=== PATIENT | female | born 1995 | race Caucasian/White ===

== ENCOUNTER 2025-05-08 08:49 | Emergency (ER) | payer OTHER ==
[~2025-05-08] VITALS: Ht 157.5 cm; Wt 69.5 kg
[2025-05-08 09:29] LABS: MEAN PLATELET VOLUME 8.2 FL (7.4-10.4); RED CELL DISTRIBUTION WIDTH 16.4 % (11.5-14.5)
[2025-05-08 09:44] LABS: CREATININE 0.87 MG/DL (0.40-0.90); TOTAL CARBON DIOXIDE 25.4 MMOL/L (24-32); eCRCL 76 ML/MIN; eGFR 78 ML/MIN
--- NOTE | 2025-05-08 10:44 | Physician Documentation ---
History of Present Illness ~ Chief Complaint: Abdominal Pain Stated Complaint: ABD PAIN Time Seen by MD: 10:42 Primary Medical Doctor: LUPE CRAWLEY 29 Year old female with a history of PCOS presents today with the acute onset burning umbilical pain which radiates to her right pelvic region. Denies any vaginal bleeding states she does have irregular menstrual cycles. denies any fevers or nausea vomiting. Day of Onset: May 08, 2025 Medication Reconciliation Allergies: Coded Allergies: No Known Allergies (Unverified , 05/08/25) Past Medical History Past Medical History: No Pertinent History Past Surgical History: no surgical history Alcohol Use: None Drug Use: none Lives with: Father Lives In: Home Occupation: student Review of Systems All Other Systems at this time: Reviewed and Negative ROS As stated above in the HPI, otherwise all systems are reviewed and negative. Physical Exam Vital Signs: Temperature: 97.8, Source: Temporal, Heart Rate: 90, Respiratory Rate: 18, BP: 153/94, Pulse Oximetry: 100, Weight: 69.500 Physical Exam General: Alert, no apparent distress. Cardiovascular: Regular rate and rhythm, no murmurs. Gastrointestinal: Soft, nontender, nondistended. Bowels sounds present. tender right pelvic region Neurologic: Oriented x4. Psychiatric: Normal mood and affect. Skin: Normal color, warm and dry. No edema, no ecchymosis. Progress Results/Orders Results/Orders Orders - ROSALIO NESS TRACK LEADER Ultrasound Pelvis W/Orwo Dplx (05/08/25 09:58) Completed Orders - ROSALIO NESS TRACK LEADER Ketorolac Trometh 30mg/Ml Vial (Toradol (05/08/25 10:00) Ultrasound Pelvis W/Orwo Dplx (05/08/25 09:58) Hcg Serum Qt (05/08/25 12:08) Medications Received in ER Medications (Trade) Dose Ordered Sig/Amadou Route PRN Reason Start Time Stop Time Status Last Admin Dose Admin (Toradol inj. 30mg/ml) 30 mg ONCE ONCE IM 05/08/25 10:00 05/08/25 10:01 DC 05/08/25 10:54 30 MG Vital Signs 05/08/25 05/08/25 05/08/25 08:54 10:54 11:43 Temp 97.8 Pulse 90 Resp 18 16 B/P (MAP) 153/94 Pulse Ox 100 Laboratory Tests Test 05/08/25 09:14 05/08/25 11:16 White Blood Count 8.4 Red Blood Count 4.66 Hemoglobin 12.9 Hematocrit 39.0 Mean Corpuscular Volume 83.5 Mean Corpuscular Hemoglobin 27.6 Mean Corpuscular Hemoglobin Concent 33.0 Red Cell Distribution Width 16.4 H Platelet Count 298 Mean Platelet Volume 8.2 Neutrophils (%) (Auto) 73.3 Lymphocytes (%) (Auto) 20.3 L Monocytes (%) (Auto) 4.9 Eosinophils (%) (Auto) 1.2 Basophils (%) (Auto) 0.3 Neutrophils # (Auto) 6.2 Lymphocytes # (Auto) 1.7 Monocytes # (Auto) 0.4 Eosinophils # (Auto) 0.1 Basophils # (Auto) 0.0 CBC Comment Sodium Level 138 Potassium Level 3.5 Chloride Level 106 Carbon Dioxide Level 25.4 Anion Gap 7 L Blood Urea Nitrogen 6 L Creatinine 0.87 Estimated GFR/1.73 m2 78 BUN/Creatinine Ratio 6.9 L Glucose Level 110 H Calcium Level 8.7 Total Bilirubin 0.5 Aspartate Amino Transf (AST/SGOT) 24 Alanine Aminotransferase (ALT/SGPT) 34 Alkaline Phosphatase 77 Total Protein 8.0 Albumin 3.9 Globulin 4.1 Albumin/Globulin Ratio 1.0 L Amylase Level 97 Lipase 24 HCG Beta Subunit 33 Chemistry Comments Urine Specimen Description Non-specified Urine Color Yellow Urine Clarity Slightly cloudy Urine pH 6.5 Urine Specific [place] 1.020 Urine Protein Negative Urine Glucose (UA) Negative Urine Ketones Trace H Urine Occult Blood Negative Urine Nitrite Negative Urine Bilirubin Negative Urine Urobilinogen 0.2 Urine Leukocyte Esterase Negative Urine RBC 0-2 Urine WBC 0-4 Urine Squamous Epithelial Cells Many Urine Transitional Epithelial Cells Few Urine Bacteria 1+ Urine Culture Indicated Not ind Volume Urine Centrifuged 10 ml Urine HCG, Qualitative Positive Urine Comment Medical Decision Making Findings This patient's laboratory values showed no signs of infection urinalysis was clean however her urinalysis indicated a positive HCG. This was confirmed via hCG quantitative which indicated that patient is for one week. This could be the attributing cause of her right pelvic pain. However she was evaluated via ultrasound no evidence of torsion ovarian cysts or any other gross abnormalities Urinary Diff Dx:Considerations: Include: AAA, , Aortic dissection, Appendicitis, Bowel obstruction, Cholelithiasis, Choleangitis, DJD, Ectopic , Hepatitis, HNP, Impaction, Intrauterine , Musculoskeletal pain, Ovarian torsion, Pancreatitis, PID, Post-Op complication, Pyelonephritis, Renal failure, Strain, Urinary Obstruction, Urolithiasis, Urinary retention, UTI, Vaginitis, Other Genital Diff Dx:Considerations: Include: -Complete, - Incomplete, -Inevitable, Ablortion-Missed, -Threatened, Abruptio placentae, Bartholin abscess, Bartholin cyst, Blood loss anemia, Constipation, Cervicitis, Dsymenorrhea, Ectopic , Foreign body, Hormonal, Hidradenitis suppurativa, Intrauterine , Menorrhagia, Menometrorrhagia, Menstrual bleeding, Myomatous uterus, Perianal abscess, Physiologic discharge, Pinworms, PID, Placenta previa, , Precipitous Hct, Trauma, UTI, Vaginitis(osis)-Atrophic, Vaginitis, Vaginitis(osis)-Bacterial, Vaginitis(osis)- Candidal, Vaginitis(osis)-Contact, Vaginitis(osis)-Herpes, Vaginitis(osis)- Trich., Other Departure Disposition: HOME / SELF CARE / HOMELESS Impression: Primary Impression: Abdominal pain Additional Impression: Condition: Stable Discharge Instructions: ABCs of Referrals: NO PRIMARY CARE PROVIDER (PCP) Signature Scribe Signature: r Attestation: Scribed for Rosalio Ness Chain Saw Operator by Rosalio Yun NP . 05/08/25 12:59 ROSALIO NESS NP May 08, 2025 10:44
[2025-05-08] MEDS: ketorolac trometh 30MG/ML vial 30 MG/ML VIAL IM ONE (10:54)
[2025-05-08 11:35] LABS: LEUKOCYTE ESTERASE ,URINE NEGATIVE (Neg); NITRITES, URINE NEGATIVE (Neg); OCCULT BLOOD,URINE NEGATIVE (Neg)
[2025-05-08 11:37] LABS: URINE HCG POSITIVE (NEG)
[2025-05-08 11:43] LABS: UA COLLECTION TYPE NON-SPECIFIED
[2025-05-08 11:44] LABS: SQUAMOUS EPITHELIAL CELL,UR MANY /LPF (FEW)
--- NOTE | 2025-05-08 11:51 | RADIOLOGY REPORT ---
INDICATION: pelvic pain TECHNIQUE: Multiple real-time grayscale transabdominal sonographic images along with color and duplex Doppler of the uterus and ovaries were obtained. COMPARISON: None FINDINGS: The uterus measures 8.2 x 3.6 x 4.7 cm cm. The endometrial stripe measures 0.8 cm. The right ovary measures 3.4 x 2.0 x 2.0 cm. The left ovary measures 3.0 x 2.5 x 2.8 cm. Subsequent color and duplex Doppler interrogation of the ovaries demonstrated symmetric vascular flow to both ovaries, though this does not exclude the possibility of torsion due to the dual blood suppl y. IMPRESSION: 1. Grossly unremarkable pelvic ultrasound.
[2025-05-08 13:11] VITALS: BP 153/94; PULSE 90; RESP 16; TEMP 97.8; O2SAT 99
== END 2025-05-08 13:12 | disposition home or self-care (01) ==
LOC: ER 08:50
DX: O26.899 Other specified pregnancy related conditions, unspecified trimester (principal)
CPT/HCPCS: 36415; 76856; 80053; 81001; 81025; 82150; 83690; 84702; 85025; 93976; 96372; 99285; J1885